=== PATIENT | male | born 1980 | race Caucasian/White ===

== ENCOUNTER → 2020-03-13 08:35 | Outpatient (CLI) | payer MEDICAID ==
--- NOTE | ~2020-03-13 | EC ---
PATIENT:BLAINE VALENTINE DATE OF SERVICE: 03/13/20 SEX: M MEDICAL RECORD: [id number] DATE OF : [birth year] LOCATION:[facility] AGE OF PATIENT: 39 ADMISSION DATE: 03/13/20 REFERRING PHYSICIAN: INTERPRETING PHYSICIAN: NESSA BADILLO MD ECHOCARDIOGRAM REPORT ECHO CHARGES 4 ECHO COMPLETE Date: 03/13/20 CLINICAL DIAGNOSIS: HEART MURMUR ECHOCARDIOGRAPHIC MEASUREMENTS (adult normal given) AC root (d.<3.7cm) 3.3 cm LV Septum d (<1.2 cm> 1.3 cm Valve Excursion 1.8 cm LV Septum (systole) 1.5 cm Left Atria (s.<4.0cm> 3.7 cm LVPW d(<1.2cm) 1.3 cm RV (d.<2.3cm) 3.7 cm LVPW (sytole) 1.4 cm LV diastole(<5.6CM) 4.6 cm MV E-F(>70mm/sec) cm LV systole 3.2 cm LVOT Diameter 2.2 cm MV exc.(>10mm) 2.1 cm Est.ejection fraction (50-75%) % DOPPLER: LVIT cm/sec A 62.0 cm/sec E 81.0 cm/sec LA cm/sec RVSP 26 mmHg LVOT 105 cm/sec AOP1/2T m/s Asc. Ao 122 cm/sec RVOT 67 cm/sec RA cm/sec PA 116 cm/sec AV Gradient Peak 5.97 mmHg AV Mean 3.14 mmHg AV Area 3.1 cm MV Gradient Peak 2.78 mmHg MV Mean 1.04 mmHg MV Area cm COMMENTS: Mac Developer: 2 STUART PAREKH Structural Steel Engineer: 3 Dr. Amador TAPE# PACS Pericardial Effusion N DATE OF SERVICE: Adequate 2D, color flow imaging, spectral Doppler, and M-Mode. Mild LVH. LV internal dimension is normal. Wall motion is normal . EF greater than or equal to 55%. Aortic valve is tricuspid. No evidence of stenosis by Doppler interrogation. Left atrium is normal. Mitral valve shows no prolapse. Physiologic MR. Right-sided chambers are grossly normal. Physiologic TR. TRANSINT:[id number] Voice Confirmation ID: [id number] DOCUMENT ID: [id number] ECHOCARDIOGRAM REPORT [id number] SERGE,NESSA DENNISON MD CC: [id number] DICTATION DATE: 03/17/20937 CUSTOMER RELATIONS REPRESENTATIVE: 03/17/202058 DEP CLI 03/13/20 [id number] [place] [address]
== END | disposition home or self-care (01) ==
LOC: D.HCCECHO 08:35
PROVIDERS: ATTEND Internal Medicine Cardiovascular Disease
DX: I20.9 Angina pectoris, unspecified (principal); R01.1 Cardiac murmur, unspecified

== ENCOUNTER → 2020-03-24 11:43 | Outpatient (CLI) | payer MEDICAID | END | disposition home or self-care (01) | LOC: D.US 09:30 | PROVIDERS: ATTEND Internal Medicine Interventional Cardiology | DX: R09.89 Other specified symptoms and signs involving the circulatory and respiratory systems (principal) ==

== ENCOUNTER 2020-03-31 07:42 | Outpatient (CLI) | payer MEDICAID ==
[~2020-03-31] VITALS: Ht 177.8 cm; Wt 93.9 kg
--- NOTE | ~2020-03-31 | HEMODYNAMI ---
PATIENT:BLAINE VALENTINE MEDICAL RECORD: [id number] : 80 LOCATION:[facility] ADMISSION DATE: 03/31/20 Generatedon:03/31/20209:57 Patient name: BLAINE VALENTINE Patient #: [id number] SSN : [id number] : 1980 Date of study: 03/31/2020 Page: Of Hemodynamic Procedure Report Patient Data Patient Demographics First Name: BLAINE Gender: Male Last Name: SERGE : 1980 Middle Initial: D Age: 39 year(s) Patient #: [id number] Race: Unknown SSN: [id number] Additional ID: [id number] Contact details [address]: [address] [place] [address] State: [place] City: [place] Zip code: [address] Past Medical History Allergies Allergen Reaction Date Comments Reported Other allergy 03/31/2020 PCN Admission Admission Data Admission Date: 03/31/2020 Admission Time: 7:42 Arrival Date: 03/31/2020 Arrival Time: 0:00 Height (in.): 62 BSA: 1.92 (m2) Height (cm.): 157.48 BMI: 37.13 (kg/m2) Weight (lbs.): 203 Weight (kg.): 92.08 Lab Results Lab Result Date: 03/31/2020 Lab Result Time: 0:00 Biochemistry Name Units Result Min Max BUN mg/dl 9 --(*---)-- 7 18 Creatinine mg/dl 1.1 --(--*-)-- 0.6 1.3 eGFR ml/min 79.67334 *-(----)-- 90 120 NONAFRICAN CBC Name Units Result Min Max Hemoglobin g/dl 16.6 --(---*)-- 13.5 17.5 Procedure Procedure Types Cath Procedure Diagnostic Procedure LHC LHC w/Coronaries Sedation Charges Moderate Sedation up to 15 minutes Procedure Description Procedure Date Procedure Date: 03/31/2020 Procedure Start Time: 9:44 Procedure End Time: 9:56 Procedure Staff Name Function Aurelio Nicolas RN Nurse Bartolo Corbin MD Performing Physician Abby Thomas RT Monitor Rafita Hughes RT Scrub Procedure Data Cath Procedure Fluoroscopy Diagnostic fluoroscopy Total fluoroscopy Time: 0.9 time: 0.9 min min Diagnostic fluoroscopy Total fluoroscopy dose: 343 dose: 343 mGy mGy Contrast Material Contrast Material Type Amount (ml) Isovue 300 45 Entry Location Entry Primary Successful Side Size Upsize Upsize Entry Closure Freeman ccessful Closure Location (Fr) 1 (Fr) 2 (Fr) Remarks Device Remarks Radial Right 6 Fr Mechanical artery Short Compression Estimated blood loss: 5 ml Diagnostic catheters Device Type Used For End Catheter Placement DIAGNOSTIC [place] 110cm 5 Procedure Fr catheter ([id number]) Procedure Complications No complications Procedure Medications Medication Administration Route Dosage 0.9% NaCl I.V. 100 ml/hr Oxygen etCO2 Nasal cannula 2 l/min Heparin Flush Bag added to field 2 bags (1000units/500ml NS) Lidocaine 2% added to field 20 Radial Cocktail added to field 1 syringe (Verapamil 2mg/Nitro 400mcg/Heparin 1500units) Versed I.V. 1 mg Fentanyl I.V. 50 mcg Versed I.V. 1 mg Radial Cocktail I.A. 1 syringe (Verapamil 2mg/Nitro 400mcg/Heparin 1500units) Hemodynamics Rest BSA: 1.92 (m2) HGB: 16.6 (g/dl) O2 Consumption: Estimated: 225.23 (ml/min) O2 Co nsumption indexed: Estimated:117.31 (ml/min/m) Heart Rate: 56 (bpm) Pressure Samples Time Site Value (mmHg) Purpose Heart Use Rate(bpm) 9:49 LV 112/0,9 EDP 61 9:50 LV 79/-17,0 EDP 62 9:50 AO 107/75(90) Pullback 71 9:50 LV 96/4,11 Pullback 71 Gradients Valve Time Site 1 Site 2 Mean SEP/DFP Peak To Heart Use (mmHg) (sec/min) Peak Rate (mmHg) (bpm) Aortic 9:50 LV AO 0 71 96/4,11 107/75(90) Calculations Valve P-P Mean Valve Index Valve Source Name Gradient Area Flow (cm2) Aortic 0 0 Snapshots Pre Cath Intra NCS Post Cath Vital Signs Time Heart Resp SPO2 etCO2 NIBP Rhythm Pain Sedation Rate (ipm) (%) (mmHg) (mmHg) Status Level (bpm) 9:35:39 55 17 99 44.1 130/82(94) NSR 0 (11) 10(A) , No pain 9:39:55 58 12 97 44.8 120/66(84) NSR 0 (11) 10(A) , No pain 9:44:05 55 12 98 42.6 119/67(91) NSR 0 (11) 10(A) , No pain 9:48:17 59 13 98 2.9 117/66(83) NSR 0 (11) 9(A) , No pain 9:52:25 69 17 95 37.4 113/69(84) NSR 0 (11) 9(A) , No pain Medications Time Medication Route Dose Verified Delivered Reason Notes Effectiveness by by 9:33:40 0.9% NaCl I.V. 100 Aurelio Aurelio Per ml/hr Fidencio Nicolas physician RN RN 9:33:50 Oxygen etCO2 2 l/min Aurelio Aurelio for low 02 Nasal Lorigan Lorigan sats cannula RN RN 9:34:03 Heparin Flush added 2 bags Aurelio Aurelio used for Bag to Lorigan Fidencio procedure (1000units/500ml field RN RN NS) 9:34:18 Lidocaine 2% added 20ml Aurelio Aurelio for local to vial Lorigan Lorigan anesthetic RN RN 9:34:35 Radial Cocktail added 1 Aurelio Aurelio used for (Verapamil to syringe Lorigan Lorigan procedure 2mg/Nitro RN RN 400mcg/Heparin 1500units) 9:41:30 Versed I.V. 1 mg Aurelio Aurelio for sedation Fidencio Nicolas RN RN 9:41:40 Fentanyl I.V. 50 mcg Aurelio Aurelio for sedation Fidencio Nicolas RN RN 9:43:44 Versed I.V. 1 mg Aurelio Aurelio for sedation Fidencio Nicolas RN RN 9:48:31 Radial Cocktail I.A. 1 Aurelio Bartolo for (Verapamil syringe Lorigan Shaquille vasodilation 2mg/Nitro MARGARETH MURPHY 400mcg/Heparin 1500units) Procedure Log Time Note 9:23:35 Arrival Date: 03/31/2020 12:00:00 AM 9:23:59 Patient Height : 62 inches 9:24:02 Patient Weight : 203 lbs 9:33:40 0.9% NaCl 100 ml/hr I.V. was administered by Aurelio Nicolas RN; Per physician; Verbal order read back and verified. 9:33:50 Oxygen 2 l/min etCO2 Nasal cannula was administered by Aurelio Nicolas RN; for low 02 sats; Verbal order read back and verified. 9:34:03 Heparin Flush Bag (1000units/500ml NS) 2 bags added to field was administered by Aurelio Nicolas RN; used for procedure; Verbal order read back and verified. 9:34:18 Lidocaine 2% 20ml vial added to field was administered by Aurelio Nicolas RN; for local anesthetic; Verbal order read back and verified. 9:34:35 Radial Cocktail (Verapamil 2mg/Nitro 400mcg/Heparin 1500units) 1 syringe added to field was administered by Aurelio Nicolas RN; used for procedure; Verbal order read back and verified. 9:34:42 Vital chart was started 9:36:16 Lab Result : BUN 9 mg/dl 9:36:16 Lab Result : eGFR NONAFRICAN 79.16009 ml/min 9:36:16 Lab Result : Hemoglobin 16.6 g/dl 9:36:16 Lab Result : Creatinine 1.1 mg/dl 9:36:51 Procedure Status Elective Heart Cath (OP). 9:36:56 Rafita Hughes RT(R) sent for patient. Start room use. 9:36:57 Time tracking: Regular hours (M-F 7:00 - 5:00) 9:37:02 Plan of Care:Hemodynamics will remain stable., Cardiac rhythm will remain stable., Comfort level will be maintained., Respiratory function will remain adequate., Patient/ family verbilizes understanding of procedure., Procedure tolerated without complication., Recovers from procedure without complications.. 9:37:07 Patient received from Pre/Post Procedure Room to CCL 1 Alert and oriented. Tansferred to table in Supine position. 9:37:08 Warm blankets applied, and ade hugger turned on for patient comfort. 9:37:09 Correct patient and procedure confirmed by team. 9:37:11 Baseline sample Acquired. 9:37:11 ECG and BP/O2 sat monitors applied to patient. 9:37:19 Rhythm: sinus rhythm 9:37:21 Full Disclosure recording started 9:37:44 H&P Date Dictated: 03/05/2020 Within 30 days and on chart., H&P Addendum completed by physician on day of procedure. (MUST COMPLETE FOR ALL OUTPATIENTS). 9:37:47 Pre-procedure instructions explained to patient. 9:37:50 Family in patients room. 9:37:52 Patient NPO since Midnight. 9:38:09 Patient allergic to Other allergyPCN 9:38:17 Is the patient allergic to Iodine/contrast media? No. 9:38:20 Is patient on blood thinner?No 9:38:22 Patient diabetic? No. 9:38:27 Snore? Yes 9:38:29 Sleep apnea? No 9:38:33 Airway obstruction? Yes asthma 9:38:36 Dentures? No ? 9:38:47 IV patent on arrival in left forearm with 0.9% NaCl at KVO. 9:38:52 Lab results completed and on chart. 9:40:22 Stress Test: yes; abnormal ? 9:40:27 Right Radial & Right Groin area was prepped with chlora-prep and draped in sterile fashion 9:40:28 Alarms reviewed by R. N. 9:40:29 Sharps counted by scrub and verified by R.N. 9:40:30 Physician paged 9:40:31 Physician arrived 9:40:31 --------ALL STOP TIME OUT------ 9:40:40 Final Timeout: patient, procedure, and site verified with staff and physician. All members of the team are in agreement. 9:40:42 Right Radial & Right Groin site verified by team. 9:40:46 Fire Safety Assessment: A--An alcohol-based skin anteseptic being used preoperatively., C--Open oxygen or nitrous oxide is being used., D--An ESU, laser, or fiber-optic light is being used. 9:40:50 Physical assessment completed. ASA score P 2 - A patient with mild systemic disease as per Aurelio Nicolas RN. 9:40:53 1) 90+ Normal kidney functon but urine findings or structural abnormalities or genetic trait point to kidney disease. 9:40:56 Maximum allowable contrast dose (3.7 X eGFR X 0.75)220 ml. 9:41:00 Sedation plan: IV Moderate Sedation Medication:Versed, Fentanyl 9:41:06 Use device set Radial Dx or PCI 9:41:09 ACIST Syringe (86876) opened to sterile field. 9:41:09 Medline Cath Pack ([id number]) opened to sterile field. 9:41:10 Bag Decanter (2002S) opened to sterile field. 9:41:10 ACIST Hand Control (73052) opened to sterile field. 9:41:11 ACIST Manifold (96578) opened to sterile field. 9:41:12 MBrace Wrist Support (655998200) opened to sterile field. 9:41:15 EMERALD Guide Wire (167-615) opened to sterile field. 9:41:16 SHEATH 6FR RAIN (1255519) opened to sterile field. 9:41:30 Versed 1 mg I.V. was administered by Aurelio Nicolas RN; for sedation; Verbal order read back and verified. 9:41:40 Fentanyl 50 mcg I.V. was administered by Aurelio Nicolas RN; for sedation; Verbal order read back and verified. 9:43:21 Zero performed for pressure channel P1 9:43:35 Procedure started. 9:43:44 Versed 1 mg I.V. was administered by Aurelio Nicolas RN; for sedation; Verbal order read back and verified. 9:44:36 Local anesthetic to right radial artery with Lidocaine 2% by Bartolo Corbin MD.INITIAL ACCESS ONLY 9:47:59 A 6 Fr Short sheath was inserted into the Right Radial artery 9:48:04 J wire advanced. 9:48:21 A DIAGNOSTIC [place] 110cm 5 Fr catheter ([id number]) was advanced over the wire and used for Procedure. 9:48:31 Radial Cocktail (Verapamil 2mg/Nitro 400mcg/Heparin 1500units) 1 syringe I.A. was administered by Bartolo Corbin MD; for vasodilation; Verbal order read back and verified. 9:49:18 LV angiography performed. 9:50:14 EF : 55 % 9:50:19 LCA angiography performed. 9:50:44 RCA angiography performed. 9:51:52 Catheter removed. 9:52:09 ZEPHYR REGULAR TR BAND (127269) opened to sterile field. 9:52:42 Sheath removed intact; hemostasis achieved with Mechanical Compression to the Right Radial artery. 9:52:47 Procedure ended.(Physican Out) 9:53:03 Fluoroscopy time 00.90 minutes. 9:53:08 Flurop Dose total: 343 9:53:08 Fluoroscopy dose: 343 mGy 9:53:14 Dose Area Product 22843 mGy/cm. 9:53:17 Contrast amount:Isovue 300 45ml. 9:53:20 Maximum allowable dose exceeded? No. 9:53:27 Sharps counted by scrub and verified by R.N. 9:53:29 [place] band inflated with 10cc of air. 9:53:30 Insertion/operative site no bleeding no hematoma. 9:53:32 Post Procedure Pulses reassessed and unchanged 9:53:40 Post-procedure physical assessment completed. ASA score P 2 - A patient with mild systemic disease as per Bartolo Corbin MD. 9:53:43 Post procedure rhythm: sinus rhythm 9:53:46 Estimated blood loss: 5 ml 9:53:48 Post procedure instruction explained to patient.Patient verbalizes understanding. 9:54:06 Procedure type changed to Cath procedure, Diagnostic procedure, LHC, C w/Coronaries, Sedation Charges, Moderate Sedation up to 15 minutes 9:54:07 Procedure and supply charges have been captured, reviewed, submitted and are correct. 9:55:15 Procedure Complication : No complications 9:55:18 Vital chart was stopped 9:55:24 [facility] Findings: mild to moderate CAD (<70%) 9:56:36 See physician's report for complete and final results. 9:56:38 Report given to Pre/Post Procedure Room. 9:56:41 Patient transfered to Pre/Post Procedure Room with Stretcher. 9:56:44 Procedure ended. 9:56:44 Full Disclosure recording stopped 9:56:48 End room use (Document Last) 9:57:02 End room use (Document Last) 9:57:31 End room use (Document Last) Device Usage Item Name Manufacture Quantity Catalog Hospital Part Current Minima l Lot# / Number Charge Number Stock Stock Serial# Code DEEP Acist 1 81189 376686 [id number] 20 Syringe Alticast (94053) [employer] Inc Medline Medline 1 [id number] 02314 811491 5 Cath Pack ([id number]) Bag Microtek 1 396614 85454 770739 5 Decanter Medical Inc. (2001S) ACIST Hand Acist 1 63293 878153 032291 081429 5 Control Medical (58518) Systems Inc ACIST Acist 1 33203 134192 510123 709100 5 Manifold Medical (84006) Systems Inc MBrace Advanced 1 140-0250-00 631705 47266 198751 5 Wrist Vascular Support Dynamics ([id number]) EMERALD Cardinal 1 502-317 460273 400981 095328 5 Guide Wire Health (985-596) SHEATH 6FR Cardinal 1 6873759 220016 6301769 863541 5 [facility] (6366324) DIAGNOSTIC Terumo 1 40-8305 464113 403105 014148 5 [place] 110cm 5 Fr catheter (379869) ZEPHYR Cardinal 1 001388 876010 0913851 704791 5 REGULAR TR Health BAND (810296) Signature Audit Mclean Stage Time Signature Unsigned Intra-Procedure 03/31/2020 Abby Thomas 9:57:02 AM RT(R) Intra-Procedure 03/31/2020 Aurelio 9:57:31 AM Fidencio ZULUAGA Intra-Procedure 03/31/2020 Bartolo Warren 9:57:54 AM Yung MURPHY [facility] [address] [id number]
[2020-03-31] MEDS ORDERED: LIPITOR20 MG PO (08:11)
[2020-03-31] MEDS ORDERED: TRAZODONE HCL150 MG PO (08:11)
[2020-03-31] MEDS ORDERED: OMEPRAZOLE20 M1 PO (08:11)
[2020-03-31] MEDS ORDERED: CYMBALTA30 MG PO (08:11)
[2020-03-31] MEDS ORDERED: BACLOFEN10 MG PO (08:12)
[2020-03-31] MEDS ORDERED: NEURONTIN 300300 MG PO (08:12)
[2020-03-31] MEDS ORDERED: ROPINIROLE HCL1 MG PO (08:13)
[2020-03-31] MEDS ORDERED: CLARITIN 10 MG10 MG PO (08:14)
[2020-03-31] MEDS ORDERED: HYDROCODON-ACE1 EA10 PO (08:17)
[2020-03-31 08:49] VITALS: BP 114/78; Ht 177.8 cm; Wt 93.9 kg
[2020-03-31 08:51] LABS: HEMATOCRIT 47.8 % (42.0-54.0); HEMOGLOBIN 16.6 g/dL (13.5-17.5); LYMPHOCYTES 27.7 % (15-50); MCH 31.7 pg (26.0-34.0); MCHC 34.7 g/dL (31.0-37.0); MCV 91.2 fL (80.0-100.0); MEAN PLATELET VOLUME 9.1 fL (7.4-10.4); NEUTROPHILS 64.6 % (40-80); PLATELET COUNT 218 10x3/uL (130-400); RBC 5.24 10x6/uL (4.20-6.10); RDW 13.5 % (11.5-14.5)
[2020-03-31 09:00] LABS: ALT (SGPT) 39 U/L (10-68); CALC OSMOLALITY 274 mosm/kg (275-300); CALCIUM 8.6 mg/dL (8.5-10.1); CARBON DIOXIDE 33.5 mmol/L (21.0-32.0); CHLORIDE - SERUM 103 mmol/L (98-107); CHOL - HDL RATIO 5.5 ratio (2.3-4.9); CHOLESTEROL, TOTAL 153 mg/dL (0-200); CREATININE - SERUM 1.1 mg/dL (0.6-1.3); GLUCOSE 94 mg/dL (74-106); HDL CHOLESTEROL 28 mg/dL (32-96); LDL CHOLESTEROL 100 mg/dL (0-100); LDL-HDL RATIO 3.6 ratio (1.5-3.5); POTASSIUM - SERUM 3.9 mmol/L (3.5-5.1); SODIUM 138 mmol/L (136-145); TRIGLYCERIDE 129 mg/dL (30-200); UREA NITROGEN 9 mg/dL (7-18); eGFR NON AFRICAN AMERICAN 79 mL/min (90-120)
--- NOTE | 2020-03-31 10:00 | NUR ---
PT RECEIVED VIA STRETCHER FROM LEGISLATIVE ANALYST FOR RECOVERY. PT SLEEPING, VERBALLY AROUSABLE. IV PATENT INFUSING VIA R ARM PER ORDERS. PT PLACED ON CARDIAC MONITORS AND O2 VIA NC AT 2L. HR SB,54, BP 123/70, RR 15, SAT 99. ZYPHER BAND AND IMMOBILIZER TO R WRIST/ARM, DRESSING CDI NO S/S HEMATOMA OR BLEEDING. ARM PINK AND WARM, CAP REFILL BRISK. CALL LIGHT IN REACH, AT BS. DR HERRERA WAS IN AND SPOKE WITH REGARDING PROCEDURE RESULTS AND PLAN OF CARE.
--- NOTE | 2020-03-31 10:32 | NUR ---
PT STILL SLEEPING, ZBAND AND IMMOBILIZER IN PLACE. NO S/S HEMATOMA. ARM PINK AND WARM, CAP REFILL BRISK. REMAINS AT BS, CALL LIGHT IN REACH. VSS.
--- NOTE | 2020-03-31 11:07 | NUR ---
3CC AIR REMOVED FROM Z BAND, NO BLEEDING OR SWELLING NOTED. ARM PINK AND ARM, CAP REFILL BRISK. 02 REMOVED, SAT 98 ON ROOM AIR. CALL LIGHT IN REACH, AT BS
--- NOTE | 2020-03-31 11:32 | NUR ---
3 ADD'L CC AIR REMOVED FROM Z BAND, NO BLEEDING OR SWELLING NOTED. PT OFFERED DRINK OR SANDWICH, DECLINED AT THIS TIME. PT STILL DROWSY. CALL LIGHT IN REACH, VSS
--- NOTE | 2020-03-31 11:48 | NUR ---
REMAINING AIR REMOVED FROM Z BAND, NO BLEEDING OR S/S HEMATOMA NOTED. SPRITE GIVEN TO DRINK. PT MORE AWAKE.
--- NOTE | 2020-03-31 11:57 | NUR ---
DISCHARGE INSTRUCTIONS REVIEWED W S/O AND PT BOTH VERBALIZED UNDERSTANDING. IV REMOVED W CATH INTACT, MONITORS REMOVED. ZBAND AND IMMOBILIZER IN PLACE, NO S/S BLEEDING OR HEMATOMA. PT UP TO DRESS FOR DISCHARGE.
--- NOTE | 2020-03-31 12:10 | NUR ---
1200 ZBAND REMOVED, NO BLEEDING NOTED. 2X2 AND SM TEGADERM DRESSING APPLIED. IMMOBILIZER RE POSITIONED. 1210 PT DISCHARGE VIA WC TO FAMILY WAITING IN PRIVATE VEHICLE. PT HAD ALL BELONGINGS AND DISCHARGE INSTRUSTIONS
--- NOTE | 2020-04-01 01:27 | OP ---
PATIENT NAME: BLAINE VALENTINE MEDICAL RECORD: [id number] :80 LOCATION:[facility] ADMISSION DATE: SURGEON: NESSA BADILLO MD DATE OF OPERATION: 03/31/2020 PROCEDURE: Left heart catheterization, selective coronary angiography, right radial approach. CATHETERS: Radial sheath, Dumont catheter. The procedure was well tolerated. The patient returned to the gerard, sheath removed. TR band placed. FINDINGS: Left ventriculography in 30-degree VARGAS view: Normal wall motion and normal systolic function. CORONARY ANATOMY: LEFT MAIN: LAD is free of disease in the diagonal system. CIRCUMFLEX: Left dominant system. Circumflex free of disease. RIGHT CORONARY ARTERY: Rudimentary, free of disease. IMPRESSION: Normal left ventricular systolic function, normal coronary anatomy. TRANSINT:[id number] Voice Confirmation ID: [id number] DOCUMENT ID: [id number] NESSA BADILLO MD at 0127 CC: [id number] DICTATION DATE: 03/31/20 100 GUN REPAIR CLERK: 03/31/202042 DEP CLI 03/31/20 [address] [place] [address]
== END 2020-03-31 12:10 | disposition home or self-care (01) ==
LOC: D.CATH 07:42
PROVIDERS: ATTEND Internal Medicine Interventional Cardiology
DX: I20.9 Angina pectoris, unspecified (principal); I10 Essential (primary) hypertension; E78.5 Hyperlipidemia, unspecified; R55 Syncope and collapse; I45.10 Unspecified right bundle-branch block; R09.89 Other specified symptoms and signs involving the circulatory and respiratory systems; Z72.0 Tobacco use